=== PATIENT | female | born 1960 | race Caucasian/White ===

== ENCOUNTER 2018-07-22 13:51 | Emergency (ER) | payer OTHER ==
[2018-07-22 14:23] LABS: ADD MAN DIFF? NO
[2018-07-22 14:27] LABS: BASOPHILS % 0.5 % (0.0-2.0); EOSINOPHILS # 0.1 10^3/ul (0.0-0.5); EOSINOPHILS % 0.8 % (0.0-7.0); HEMATOCRIT 51.1 % (37.0-47.0); HEMOGLOBIN 16.7 g/dl (12.0-16.0); LYMPHOCYTES % 13.7 % (15.0-51.0); MEAN CORPUSCULAR HEMOGLOBIN 26.4 pg (29.0-33.0); MEAN CORPUSCULAR HGB CONC 32.7 g/dl (32.0-37.0); MEAN CORPUSCULAR VOLUME 80.7 fl (82.0-101.0); MEAN PLATELET VOLUME 9.9 fl (7.4-10.4); MONOCYTE # 0.8 10^3/ul (0.3-0.9); MONOCYTES % 10.9 % (0.0-11.0); NEUTROPHIL # 5.6 10^3/ul (1.6-7.5); NEUTROPHILS % 73.8 % (39.0-77.0); PLATELET COUNT 394 10^3/UL (140-415); RED BLOOD COUNT 6.33 10^6/ul (4.20-5.40); RED CELL DISTRIBUTION WIDTH 13.2 % (11.5-14.5)
[2018-07-22 14:27] LABS: WHITE BLOOD COUNT 7.5 10^3/ul (4.8-10.8)
[2018-07-22] MEDS: hydrALAzine 20 MG INJ IV (14:27)
[2018-07-22 14:40] LABS: PROTIME 12.2 Sec (11.9-14.9)
[2018-07-22 14:41] LABS: PARTIAL THROMBOPLASTIN TIME 22.9 Sec (23.0-35.0)
[2018-07-22 14:45] LABS: SODIUM 140 mmol/L (135-144)
[2018-07-22 14:45] LABS: HEMOGLOBIN A1C 9.5 % (0-5.9)
[2018-07-22 14:46] LABS: ALANINE AMINOTRANSFERASE 32 IU/L (13-69); ALBUMIN 4.4 g/dl (3.3-4.9); ALBUMIN/GLOBULIN RATIO 1.12; ALKALINE PHOSPHATASE 218 IU/L (42-121); ANION GAP 13 (5-13); ASPARTATE AMINO TRANSFERASE 26 IU/L (15-46); BILIRUBIN,INDIRECT 0.5 mg/dl (0-1.1); BILIRUBIN,TOTAL 0.5 mg/dl (0.2-1.3); BLOOD UREA NITROGEN 13 mg/dl (7-20); CALCIUM 9.7 mg/dl (8.4-10.2); CARBON DIOXIDE 28 mmol/L (21-31); CHLORIDE 99 mmol/L (97-110); CREATINE KINASE 62 IU/L (23-200); Estimated GFR > 60 mL/min (>60); GLUCOSE 272 mg/dl (70-220); POTASSIUM 4.4 mmol/L (3.5-5.1); TOTAL PROTEIN 8.3 g/dl (6.1-8.1)
[2018-07-22 14:58] LABS: B-TYPE NATRIURETIC PEPTIDE 174 PG/ML (0-125); CK INDEX 0.6; CK-MB 0.38 ng/ml (0.0-2.4); TROPONIN-I < 0.012 ng/ml (0.000-0.120)
[2018-07-22 15:11] LABS: FREE THYROXINE INDEX (Calc) 2.31 ug/ml (0.65-3.89); T3 UPTAKE 27.5 % (23.5-40.5); T4 (THYROXINE) 8.4 ug/dl (5.5-11.0)
[2018-07-22] MEDS ORDERED: NICARDipine HCL 30 MG CAPSULE PO (17:00)
[2018-07-22] MEDS: metFORMIN 500 MG TAB PO (17:08)
[2018-07-22] MEDS ORDERED: GLUCAGON 1 MG INJ IM (17:30)
[2018-07-22] MEDS ORDERED: DEXTROSE 50% 50 ML SYRINGE IV ×2 (17:30)
[2018-07-22] MEDS ORDERED: GLUCOSE GEL 15 GRAM TUBE PO ×2 (17:30)
[2018-07-22] MEDS ORDERED: GLUCOSE GEL 15 GRAM TUBE BUCCAL (17:30)
== END 2018-07-22 18:06 | disposition home or self-care (01) ==
LOC: E/R 13:51
DX: I16.0 Hypertensive urgency (principal); E11.9 Type 2 diabetes mellitus without complications; J01.90 Acute sinusitis, unspecified; R51 Headache; R07.9 Chest pain, unspecified; Z79.84 Long term (current) use of oral hypoglycemic drugs
CPT/HCPCS: 36415; 70450; 71045; 80053; 82550; 82553; 83036; 83880; 84436; 84479; 84484; 85025; 85610; 85730; 93005; 96374; 99285-25